=== PATIENT | female | born 1985 | race Hispanic/Latino ===

== ENCOUNTER 2024-04-03 19:09 | Emergency (ER) | payer SELFPAY ==
--- OUTSIDE RECORDS SUMMARY | 2024-04-03 19:12 | XMS REPORT | Continuity of Care Document ---
Author Name Unknown Address [address] [facility] [address] [place] [address] [facility] Address [address] [facility] [address] [place] [address] Care Team Providers Care Slip Maker Name Role Phone PCP, PATIENT DOES NOT HAVE A Primary Care Physic derrick Unavailable SHAUN SHIELDS Attending Clinician Unavailable Shaun Huang Attending Clinician Selam Rodriguez R Attending Clinician [phone] Silvia Hernandez Attending Clinician [phone] Pcp, Patient Does Not Have A Attending Clinician Jailyn Cabrera DO Attending Clinician [phone] JAILYN CABRERA Attending Clinician Unavailable Doctor Unassigned, Lopeno Attending Clinician U Francisco Malone Attending Clinician [phone] SHAUN SHIELDS Admitting Clinician Unavailable Problems Condition Name Condition Details Condition Category Status Onset Date Resolution Date Last Treatment Date Treating Clinician Comments Source Surgery, elective Surgery, elective Disease Active 12-07 00:00: 00 [facility] Other threatened labor, antepartum Other threatened labor, antepartum Disease Active 12-01 00:00: 00 [facility] Pelvic pain complicati ng , antepartum , third trimester Pelvic pain complicati ng , antepartum , third trimester Disease Active 11-19 00:00: 00 [facility] History of polyhydram nios History of polyhydram nios Disease Active 07-03 00:00: 00 Overview: Pt reports that with her second son, there was too much fluid [facility] History of polyhydram nios History of polyhydram nios Disease Active 07-03 00:00: 00 Overview: Formattin g of this note might be different from the original. Pt reports that with her second son, there was too much fluid [facility] Rubella non-immune status, antepartum Rubella non-immune status, antepartum Disease Active 05-28 00:00: 00 [facility] Abnormal maternal glucose tolerance, antepartum Abnormal maternal glucose tolerance, antepartum Disease Active 05-27 00:00: 00 Overview: Formattin g of this note might be different from the original. 1 hr lak=403 [facility] BV (bacterial vaginosis) BV (bacterial vaginosis) Disease Active 05-26 00:00: 00 [facility] Supervisio n of other high-risk Supervisio n of other high-risk Disease Active 05-26 00:00: 00 Overview: Formattin g of this note might be different from the original. ICD10 Diagnosis Term Applied Research Director Utility [facility] History of delivery, currently History of delivery, currently Disease Active 05-26 00:00: 00 Overview: Formattin g of this note might be different from the original. Prev x 2 [facility] Obesity complicati ng , childbirth , or puerperium , antepartum Obesity complicati ng , childbirth , or puerperium , antepartum Disease Active 05-26 00:00: 00 Overview: Formattin g of this note might be different from the original. ICD10 Diagnosis Term Applied Research Director Utility [facility] Uterine size-date discrepanc y, antepartum Uterine size-date discrepanc y, antepartum Disease Active 05-26 00:00: 00 Overview: Formattin g of this note might be different from the original. ICD10 Diagnosis Term Applied Research Director Utility [facility] Multiparit y Multiparit y Disease Active 05-26 00:00: 00 [facility] Nausea and vomiting in prior to 22 weeks gestation Nausea and vomiting in prior to 22 weeks gestation Disease Active 05-26 00:00: 00 [facility] Cyst, ovary, dermoid Cyst, ovary, dermoid Disease Active 2012-04 216 00:00: 00 [facility] Other and unspecifie d ovarian cyst Other and unspecifie d ovarian cyst Disease Active 2012-04 00:00: 00 Overview: Formattin g of this note might be different from the original. Bilateral pelvic masses, larger on the right -side. 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 8.8 x 6cm on the left side and 2.7 x 2cm on the right side. [facility] Allergies, Adverse Reactions, Alerts Allergy Name Allergy Type Status Severity Reaction(s) Onset Date Inactive Date Treating Clinician Comments Source NO KNOWN ALLERGIE S Drug Class Active [facility] Social History Social Habit Start Date Stop Date Quantity Comments Source History of tobacco use Cigarette Smoker [facility] Exposure to SARS-CoV-2 (event) 2021-12-02 00:00:00 2021-12-12 11:38:00 Not sure [facility] Alcohol intake 2021-12-12 00:00:00 2021-12-12 00:00:00 0 /d [facility] Tobacco use and exposure 2013-02-19 00:00:00 2013-02-19 00:00:00 Smokeless tobacco non-user [facility] Sex Assigned At 1985 00:00:00 1985 00:00:00 [facility] Smoking Status Start Date Stop Date Source Ex-smoker 2013-02-19 00:00:00 2013-02-19 00:00:[address] [facility] Medications Ordered Medication Name Filled Medication Name Start Date Stop Date Current Medication? Ordering Clinician Indication Dosage Frequency Signature (SIG) Comments Components Source ibuprofen (IBU) tablet 800 mg 12-12 17:00: 00 12-12 17:13 :00 No 800mg 800 mg, Oral, ONCE, 1 dose, On Sun12/12/21 at 1200, [facility] ketorolac (TORADOL) injection 15 mg 08-12 04:00: 00 08-12 02:53 :00 No 15mg 15 mg, Slow IV Push, ONCE, 1 dose, Sun08/11/20 at 2300, [facility]
Gladis [facility] member approving Restricted medication : SELAM GALEANO [facility] ondansetron (ZOFRAN (PF)) injection 4 mg 08-12 03:45: 00 08-12 02:48 :00 No 4mg 4 mg, Slow IV Push, ONCE, 1 dose, Sun08/11/20 at 2245, [facility] FENTanyl PF (SUBLIMAZE (PF)) injection 50 mcg 08-12 03:15: 00 08-12 02:10 :00 No 50ug 50 mcg, Slow IV Push, ONCE, 1 dose, Sun08/11/20 at 2215, Routine [facility] ondansetron (ZOFRAN (PF)) injection 4 mg 08-12 03:15: 00 08-12 02:10 :00 No 4mg 4 mg, Slow IV Push, ONCE, 1 dose, Sun08/11/20 at 2215, [facility] NaCl 0.9% (NS) bolus infusion 1,000 mL 08-12 02:15: 00 08-12 03:40 :00 No 1000mL at 999 mL/hr, 1,000 mL, IV Infusion, ONCE, 1 dose, Sun08/11/20 at 2115, [facility] ondansetron (ZOFRAN ODT) 4 mg disintegrat ing tablet 08-11 00:00: 00 Yes [id number] 4mg Take 1 tablet by mouth every 8 (eight) hours as needed for Nausea and Vomiting (N/V). [facility] ibuprofen (IBU) tablet 600 mg 12-28 01:00: 00 12-28 00:47 :00 No 600mg 600 mg, Oral, ONCE, 1 dose, Elliott 12/28/19 at 2000, [facility] ibuprofen 600 mg tablet 12-27 00:00: 00 Yes [id number] 600mg Take 1 tablet by mouth every 6 (six) hours as needed for Pain (scale 4-6). [facility] acetaminoph en (TYLENOL) tablet 1,000 mg 10-18 07:00: 00 10-18 05:52 :00 No 1000mg 1,000 mg, Oral, ONCE, 1 dose, 10/19/19 at 0200, [facility] benzonatate 100 mg capsule 10-18 00:00: 00 Yes [id number] 100mg Take 1 capsule by mouth 3 (three) times daily as needed for Cough. [facility] chlorphenir amine 4 mg tablet 10-18 00:00: 00 Yes [id number] 4mg Take 1 tablet by mouth every 6 (six) hours as needed for Allergies or Runny nose. [facility] multivitami n capsule 10-18 00:00: 00 Yes [id number] 1{capsu le} Take 1 capsule by mouth daily. [facility] calcium-mag nesium-zinc 333-133-8.3 mg Tab 10-18 00:00: 00 Yes [id number] Take as directed for daily dose. [facility] azithromyci n (ZITHROMAX Z-IRA) 250 mg tablet 10-18 00:00: 00 Yes [id number] 250mg Take 1 tablet by mouth SEE-INSTRU CTIONS. Take 500 mg day 1, then 250 mg days 2 to 5. [facility] multivitami n capsule 10-18 00:00: 00 Yes [id number] 1{capsu le} Take 1 capsule by mouth daily. [facility] ondansetron (ZOFRAN (PF)) injection 4 mg 12-28 20:00: 00 12-28 19:25 :00 No 4mg 4 mg, Slow IV Push, ONCE, 1 dose, 12/28/18 at 1500, [facility] NaCl 0.9% (NS) bolus infusion 1,000 mL 12-28 20:00: 00 12-28 20:28 :00 No 1000mL at 999 mL/hr, 1,000 mL, IV Infusion, ONCE, 1 dose, 12/28/18 at 1500, STAT [facility] hydrOXYzine (ATARAX) tablet 25 mg 12-28 19:45: 00 12-28 18:58 :00 No 25mg 25 mg, Oral, ONCE, 1 dose, 12/28/18 at 1445, [facility] hydrOXYzine 25 mg capsule 12-28 00:00: 00 01-08 04:59 :00 No [id number] 25mg Take 1 capsule by mouth 3 (three) times daily as needed for Itching or Anxiety for up to 10 days. [facility] fluticasone (FLONASE) 50 mcg/actuati on nasal spray 07-03 00:00: 00 Yes 1{spray } Use 1 Cedar in each nostril daily. [facility] Vital Signs Vital Name Observation Time Observation Value Comments S ource Systolic blood pressure 2021-12-12 16:38:00 156 mm[Hg] [facility] Diastolic blood pressure 2021-12-12 16:38:00 86 mm[Hg] [facility] Heart rate 2021-12-12 16:38:00 82 /min [facility] Body temperature 2021-12-12 16:38:00 37 Tasha [facility] Respiratory rate 2021-12-12 16:38:00 15 /min [facility] Body height 2021-12-12 16:38:00 157.5 cm [facility] Body weight 2021-12-12 16:38:00 104.327 kg [facility] BMI 2021-12-12 16:38:00 42.07 kg/m2 [facility] Oxygen saturation in Arterial blood by Pulse oximetry 2021-12-12 16:38:00 96 /min [facility] Systolic blood pressure 2020-08-12 03:07:00 134 mm[Hg] [facility] Diastolic blood pressure 2020-08-12 03:07:00 82 mm[Hg] [facility] Heart rate 2020-08-12 03:07:00 76 /min [facility] Respiratory rate 2020-08-12 03:07:00 16 /min [facility] Oxygen saturation in Arterial blood by Pulse oximetry 2020-08-12 03:07:00 100 /min [facility] Body temperature 2020-08-12 01:39:00 36.78 Tasha [facility] Body height 2020-08-12 01:39:00 157.5 cm [facility] Body weight 2020-08-12 01:39:00 99.791 kg [facility] BMI 2020-08-12 01:39:00 40.24 kg/m2 [facility] Systolic blood pressure 2019-12-28 23:32:00 137 mm[Hg] [facility] Diastolic blood pressure 2019-12-28 23:32:00 87 mm[Hg] [facility] Heart rate 2019-12-28 23:32:00 76 /min [facility] Body temperature 2019-12-28 23:32:00 36.39 Tasha [facility] Respiratory rate 2019-12-28 23:32:00 18 /min [facility] Body height 2019-12-28 23:32:00 157.5 cm [facility] Body weight 2019-12-28 23:32:00 90.719 kg [facility] BMI 2019-12-28 23:32:00 36.58 kg/m2 [facility] Oxygen saturation in Arterial blood by Pulse oximetry 2019-12-28 23:32:00 98 /min [facility] Systolic blood pressure 2019-12-28 23:32:00 137 mm[Hg] [facility] Diastolic blood pressure 2019-12-28 23:32:00 87 mm[Hg] [facility] Heart rate 2019-12-28 23:32:00 76 /min [facility] Body temperature 2019-12-28 23:32:00 36.39 Tasha [facility] Respiratory rate 2019-12-28 23:32:00 18 /min [facility] Body height 2019-12-28 23:32:00 157.5 cm [facility] Body weight 2019-12-28 23:32:00 90.719 kg [facility] BMI 2019-12-28 23:32:00 36.58 kg/m2 [facility] Oxygen saturation in Arterial blood by Pulse oximetry 2019-12-28 23:32:00 98 /min [facility] Systolic blood pressure 2019-10-19 07:00:00 143 mm[Hg] [facility] Diastolic blood pressure 2019-10-19 07:00:00 96 mm[Hg] [facility] Heart rate 2019-10-19 07:00:00 86 /min [facility] Body temperature 2019-10-19 07:00:00 37.67 Tasha [facility] Oxygen saturation in Arterial blood by Pulse oximetry 2019-10-19 07:00:00 99 /min [facility] Respiratory rate 2019-10-19 06:09:51 18 /min [facility] Body height 2019-10-19 03:36:00 157.5 cm [facility] Body weight 2019-10-19 03:36:00 95.255 kg [facility] BMI 2019-10-19 03:36:00 38.41 kg/m2 [facility] Systolic blood pressure 2019-10-19 07:00:00 143 mm[Hg] [facility] Diastolic blood pressure 2019-10-19 07:00:00 96 mm[Hg] [facility] Heart rate 2019-10-19 07:00:00 86 /min [facility] Body temperature 2019-10-19 07:00:00 37.67 Tasha [facility] Oxygen saturation in Arterial blood by Pulse oximetry 2019-10-19 07:00:00 99 /min [facility] Respiratory rate 2019-10-19 06:09:51 18 /min [facility] Body height 2019-10-19 03:36:00 157.5 cm [facility] Body weight 2019-10-19 03:36:00 95.255 kg [facility] BMI 2019-10-19 03:36:00 38.41 kg/m2 [facility] Systolic blood pressure 2018-12-28 20:00:00 119 mm[Hg] [facility] Diastolic blood pressure 2018-12-28 20:00:00 82 mm[Hg] [facility] Heart rate 2018-12-28 20:00:00 79 /min [facility] Respiratory rate 2018-12-28 20:00:00 24 /min [facility] Oxygen saturation in Arterial blood by Pulse oximetry 2018-12-28 20:00:00 98 /min [facility] Body weight 2018-12-28 18:45:00 90.719 kg [facility] BMI 2018-12-28 18:45:00 37.81 kg/m2 [facility] Body temperature 2018-12-28 18:44:00 37.06 Tasha [facility] Systolic blood pressure 2018-12-28 20:00:00 119 mm[Hg] [facility] Diastolic blood pressure 2018-12-28 20:00:00 82 mm[Hg] [facility] Heart rate 2018-12-28 20:00:00 79 /min [facility] Respiratory rate 2018-12-28 20:00:00 24 /min [facility] Oxygen saturation in Arterial blood by Pulse oximetry 2018-12-28 20:00:00 98 /min [facility] Body weight 2018-12-28 18:45:00 90.719 kg [facility] BMI 2018-12-28 18:45:00 37.81 kg/m2 [facility] Body temperature 2018-12-28 18:44:00 37.06 Tasha [facility] Procedures Procedure Date / Time Performed Performing Clinician Source XR ANKLE 3+ VW RIGHT 2021-12-12 17:13:07 Benjamin Shieldse [facility] CONSENT/REFUSAL FOR DIAGNOSIS AND TREATMENT 2021-12-12 16:32:39 Doctor Unassigned, Lopeno [facility] US ABDOMEN LIMITED 2020-08-12 02:36:22 Selam Galeano [facility] POCT TEST 2020-08-12 02:12:00 Selam Galeano [facility] LIPASE 2020-08-12 02:08:00 [facility] COMP. METABOLIC PANEL ([id number]) 2020-08-12 02:08:00 Selam Galeano [facility] CBC WITH DIFF 2020-08-12 02:08:00 Selam Galeano [facility] URINALYSIS 2020-08-12 02:08:00 Sel[facility]ale[facility] CONSENT/REFUSAL FOR DIAGNOSIS AND TREATMENT 2020-08-12 01:34:04 Doctor Unassigned, Lopeno [facility] XR FOREARM 2 VW LEFT 2019-12-29 00:21:37 Silvia Guzman [facility] XR HUMERUS 2 VW LEFT 2019-12-29 00:21:37 Silvia Guzman [facility] NOTICE OF PRIVACY PRACTICES 2019-12-28 23:25:53 Doctor Unassigned, Lopeno [facility] CONSENT/REFUSAL FOR DIAGNOSIS AND TREATMENT 2019-12-28 23:23:02 Doctor Unassigned, Lopeno [facility] URINALYSIS 2019-10-19 06:08:00 Jailyn Cabrera [facility] COVID-19 (ID NOW RAPID TESTING) 2019-10-19 05:53:00 Jailyn Cabrera [facility] XR CHEST 1 VW COVID 2019-10-19 04:04:00 Jr Cabrera [facility] COMP. METABOLIC PANEL ([id number]) 2019-10-19 03:48:00 Jailyn Cabrera [facility] CBC WITH DIFFERENTIAL 2019-10-19 03:48:00 Anders Cabrera [facility] CONSENT/REFUSAL FOR DIAGNOSIS AND TREATMENT 2019-10-19 03:24:04 Doctor Unassigned, Lopeno [facility] ASSIGNMENT OF BENEFITS 2019-10-19 03:23:51 Docto r Unassigned, Lopeno [facility] COMP. METABOLIC PANEL (19757) 2018-12-28 19:22:00 Francisco Lorenz [facility] CBC WITH DIFFERENTIAL 2018-12-28 19:22:00 Kaleb Lorenz [facility] Encounters Start Date/Time End Date/Time Encounter Type Admission Type Attending [facility] Care Facility Care Department Encounter ID Source 2021-12-12 11:39:00 2021-12-12 13:08:00 Emergency X SHAUN SHIELDS [facility] ERT [id number] [facility] 2021-12-12 11:39:00 2021-12-12 13:08:00 Emergency Shaun Shields [facility] [id number] 350.1.13.10 [id number] [id number] [facility] 2020-08-11 20:35:00 2020-08-11 22:52:00 Emergency Selam Galeano [facility] [id number] 350.1.13.10 4.2.7.2.686 [id number] [facility] 2020-08-11 20:34:00 2020-08-11 20:34:00 Emergency X [facility] ERT [id number] [facility] 2019-12-28 18:33:00 2019-12-28 20:15:00 Emergency Silvia Guzman [facility] [id number] [id number] 4.2.7.2.686 [id number] [facility] 2019-12-28 18:33:00 2019-12-28 20:15:00 Emergency Silvia Guzman [facility] [id number] 350.1.13.10 4.2.7.2.686 [id number] 2019-12-28 18:23:00 2019-12-28 18:23:00 Emergency X [facility] ERT [id number] [facility] 2019-10-22 00:00:00 2019-10-22 00:00:00 Letter (Out) Pcp, Patient Does Not Have A [facility] [id number] 350.1.13.10 4.2.7.2.686 [id number] [facility] 2019-10-22 00:00:00 2019-10-22 00:00:00 Letter (Out) Pcp, Patient Does Not Have A [facility] [id number] 350.1.13.10 4.2.7.2.686 [id number] 2019-10-18 22:29:58 2019-10-19 02:20:00 Emergency Jailyn Cabrera [facility] [id number] 350.1.13.10 4.2.7.2.686 [id number] [facility] 2019-10-18 22:29:58 2019-10-19 02:20:00 Emergency Jailyn Cabrera [facility] [id number] 350.1.13.10 4.2.7.2.686 [id number] 2019-10-18 22:24:00 2019-10-18 22:24:00 Emergency X JAILYN CABRERA [facility] ERT [id number] [facility] 2019-10-18 00:00:00 2019-10-18 00:00:00 Orders Only Doctor Unassigned, Lopeno [facility] [id number] 350.1.13.10 4.2.7.2.686 [id number] [facility] 2019-10-18 00:00:00 2019-10-18 00:00:00 Orders Only Doctor Unassigned, Lopeno [facility] 1.2.840.114 350.1.13.10 4.2.7.2.686 [id number] 2018-12-28 13:40:43 2018-12-28 15:29:00 Emergency Francsico Lorenz [facility] 1.2.840.114 350.1.13.10 4.2.7.2.686 [id number] [facility] 2018-12-28 13:40:43 2018-12-28 15:29:00 Emergency Francisco Lorenz [facility] [id number] 350.1.13.10 4.2.7.2.686 [id number] Results Test Description Test Time Test Comments Results Result Co mments Source [facility]30:18* Test Item Value Reference Range Interpretation Comme nts LIPASE (test code = 6453118072) 42 U/L 0-220 Lab Interpretation (test cod e = 36825-9) Normal [facility] 02:28:30* Test Item Value Reference Range Interpretation Comme nts APPEARANCE (test code = 5722177489) Hazy Clear A COLOR (test code = 8925691104) Yellow Yellow PH (test code = 8297380579) 4.8-8.0 SP GRAVITY (test code = 1884796098) 1.003-1.030 GLU U QUAL (test code = 0331168067) Normal Normal BLOOD (test code = 6591709771) 3+ Negative A KETONES (test code = 9647905367) Negative Negative PROTEIN (test code = 2887-8) Negative Negative UROBILIN (test code = 4280536572) Normal Normal BILIRUBIN (test code = 5136075688) Negative Negative NITRITE (test code = 7147262995) Negative Negative LEUK ARCENIO (test code = 6893740618) Negative Negative RBC/HPF (test code = 3534632980) See_Comment H [Automated messa ge] The system which generated this result transmitted reference range: 0 - 3 HPF. The reference range was not used to interpret this result as normal/abnormal. WBC/HPF (test code = 2010389772) See_Comment H [Automated messa ge] The system which generated this result transmitted reference range: 0 - 5 HPF. The reference range was not used to interpret this result as normal/abnormal. BACTERIA (test code = 4959784158) Moderate Negative A MUCOUS (test code = 7671331350) Slight Negative LPF A AMORPHOUS (test code = 1041222733) Rare Rare HPF SQ EPITH (test code = 5135266221) HPF Lab Interpretation (test code = 19393-6) Abnormal [facility] WITH [id number] 02:18:38* Test Item Value Reference Range Interpretation Comme nts WBC (test code = 6690-2) See_Comment [Automated messa ge] The system which generated this result transmitted reference range: 4.30 - 11.10 10*3/?L. The reference range was not used to interpret this result as normal/abnormal. RBC (test code = 789-8) See_Comment [Automated messa ge] The system which generated this result transmitted reference range: 3.93 - 5.25 10*6/?L. The reference range was not used to interpret this result as normal/abnormal. HGB (test code = 718-7) 12.4 g/dL 11.6-15.0 HCT (test code = 4544-3) 38.3 % 35.7-45.2 MCV (test code = 787-2) 86.5 fL 80.6-95.5 MCH (test code = 785-6) 28.0 pg 25.9-32.8 MCHC (test code = 786-4) 32.4 g/dL 31.6-35.1 RDW-SD (test code = 74223-5) 42.5 fL 39.0-49.9 RDW-CV (test code = 788-0) 13.5 % 12.0-15.5 PLT (test code = 777-3) See_Comment [Automated messa ge] The system which generated this result transmitted reference range: 166 - 358 10*3/?L. The reference range was not used to interpret this result as normal/abnormal. MPV (test code = 92865-5) 9.0 fL 9.5-12.9 L NRBC/100 WBC (test code = 5444879939) See_Comment [Automated [employer] ssage] The system which generated this result transmitted reference range: 0.0 - 10.0 /100 WBCs. The reference range was not used to interpret this result as normal/abnormal. NRBC x10^3 (test code = 1889660651) <0.01 See_Comment [Automated messa ge] The system which generated this result transmitted reference range: 10*3/?L. The reference range was not used to interpret this result as normal/abnormal. GRAN MAT (NEUT) % (test code = 770-8) 62.2 % IMM GRAN % (test code = 3464779180) 0.40 % LYMPH % (test code = 736-9) 30.2 % MONO % (test code = 5905-5) 4.2 % EOS % (test code = 713-8) 2.6 % BASO % (test code = 706-2) 0.4 % GRAN MAT x10^3(ANC) (test code = 2610020890) 6.37 10*3/uL 1.88-7.09 IMM GRAN x10^3 (test code = 7919505587) 0.04 10*3/uL 0.00-0.06 LYMPH x10^3 (test code = 731-0) 3.10 10*3/uL 1.32-3.29 MONO x10^3 (test code = 742-7) 0.43 10*3/uL 0.33-0.92 EOS x10^3 (test code = 711-2) 0.27 10*3/uL 0.03-0.39 BASO x10^3 (test code = 704-7) 0.04 10*3/uL 0.01-0.07 Lab Interpretation (test code = 67885-5) [facility] [id number] 02:12:00* Test Item Value Reference Range Interpretation Comme nts POCT PREG (test code = 1605) negative On board controls acceptable with C Line (test code = 3574) present POCT PREG LOT # (test code = 3575) [id number] POCT PREG TEST DATE ( test code = 3576) 03/22/2022 Lab Interpretation (test cod e = 47169-3) Normal [facility] 2 VW [id number] 00:58:00No acute bony abnormality. Soft tissue swelling. Preliminary Report Dictated by Resident: Toribio Yusuf MD., have reviewed this study and agree with the abovereport.EXAM: XR FOREARM 2 VW LEFT, EXAM: XR HUMERUS 2 VW LEFT HISTORY: right arm pain from fall COMPARISON: None. FINDINGS: Radiographs of the left humerus and forearm demonstrate no acute fracturesor dislocations. Mild soft tissue swelling is seen at the dorsal aspect ofthe distal arm and proximal forearm. A subcentimeter punctate density atthe dorsal aspect of the proximal ulna, possibly dystrophic soft tissuecalcifications versus foreign body. A corticated osseous fragment is seenat the medial aspect of the ulnotr ochlear joint, likely a remote fracturefragment. [facility], Radiant Results Inft User - 12/28/2019 7:59 PM CDTEXAM: XR FOREARM 2 VW LEFT, EXAM: XR HUMERUS 2 VW LEFTHISTORY: right arm pain from fall COMPARISON: None.FINDINGS: Radiographs of the left humerus and forearm demonstrate no acute fracturesor dislocations. Mild soft tissue swelling is seen at the dorsal aspect ofthe distal arm and proximal forearm. A subcentimeter punctate density atthe dorsal aspect of the proximal ulna, possibly dystrophicsoft tissuecalcifications versus foreign body. A corticated osseous fragment is seenat the medial aspect of the ulnotrochlear joint, likely a remote fracturefragment. IMPRESSIONNo acute bony abnormali ty.Soft tissue swelling.Preliminary Report Dictated by Resident: Toribio Saxena MD., have reviewed this study and agree with the abovereport.[facility] 2 VW [id number] 00:58:00No acute bony abnormality. Soft tissue swelling. Preliminary Report Dictated by Resident: Toribio Yusuf MD., have reviewed this study and agree with the abovereport.EXAM: XR FOREARM 2 VW LEFT, EXAM: XR HUMERUS 2 VW LEFT HISTORY: right arm pain from fall COMPARISON: None. FINDINGS: Radiographs of the left humerus and forearm demonstrate no acute fracturesor dislocations. Mild soft tissue swelling is seen at the dorsal aspect ofthe distal arm and proximal forearm. A subcentimeter punctate density atthe dorsal aspect of the proximal ulna, possibly dystrophic soft tissuecalcifications versus foreign body. A corticated osseous fragment is seenat the medial aspect of the ulnotrochlear joint, likely a remote fracturefragment. [facility], Radiant Results Inft User - 12/28/2019 7:59 PM CDTEXAM: XR FOREARM 2 VW LEFT, EXAM: XR HUMERUS 2 VW LEFTHISTORY: right arm pain from fall COMPARISON: None.FINDINGS: Radiographs of the left humerus and forearm demonstrate no acute fracturesor dis locations. Mild soft tissue swelling is seen at the dorsal aspect ofthe distal arm and proximal forearm. A subcentimeter punctate density atthe dorsal aspect of the proximal ulna, possibly dystrophicsoft tissuecalcifications versus foreign body. A corticated osseous fragment is seenat the medial aspect of the ulnotrochlear joint, likely a remote fracturefragment. IMPRESSIONNo acute bony abnormality.Soft tissue swelling.Preliminary Report Dictated by Resident: Toribio Saxena MD., have reviewed this study and agree with the abovereport.[facility]INALYSIS2020-06-28 07:00:00 * Test Item Value Reference Range Interpretation Comme nts APPEARANCE (test code = 3555431840) Cloudy Clear A COLOR (test code = 8550355735) Yellow Yellow PH (test code = 8726069289) 4.8-8.0 SP GRAVITY (test code = 3840669841) 1.003-1.030 GLU U QUAL (test code = 9797367326) Normal Normal BLOOD (test code = 8609738371) 1+ Negative A KETONES (test code = 3249343368) Negative Negative PROTEIN (test code = 2887-8) Negative Negative UROBILIN (test code = 1138545762) Normal Normal BILIRUBIN (test code = 0061470354) Negative Negative NITRITE (test code = 5269629148) Negative Negative LEUK ARCENIO (test code = 5315177362) Negative Negative RBC/HPF (test code = 2377030766) See_Comment H [Automated messa ge] The system which generated this result transmitted reference range: 0 - 3 HPF. The reference range was not used to interpret this result as normal/abnormal. WBC/HPF (test code = 1396291460) See_Comment [Automated messa ge] The system which generated this result transmitted reference range: 0 - 5 HPF. The reference range was not used to interpret this result as normal/abnormal. BACTERIA (test code = 4298835459) Many Negative A MUCOUS (test code = 4196145322) Moderate Negative LPF A SQ EPITH (test code = 5381626654) HPF Lab Interpretation (test code = 75367-8) [facility]normal [facility]OVID[facility] (ID NOW RAPID TESTING)2019-10-19 06:31:00* Test Item Value Reference Range Interpretation Comme nts SARS-CoV-2 Rapid ID NOW (test code = 31376-6) Positive Not Detected A ZIA (test code = ZIA) ID NOW COVID-19 As say is an isothermal nucleic acid amplification test intended for the qualitative detection of nucleic acid from SARS-CoV-2 viral RNA in nasopharyngeal (ENGAGEMENT SPECIALIST) specimens. It is used under Emergency Use Authorization (EUA) by FDA. The limit of detection (LOD) of the assay is 125 Genome Equivalents/mL. A positive result is indicative of the presence of SARS-CoV-2 RNA. ?Clinical correlation with patient history and other diagnostic information is necessary to determine patient infection status. A negative (Not Detected) result does not preclude SARS-CoV-2 infection. In patients with clinical symptoms and other tests that are consistent with SARS-CoV-2 infection, negative results should be treated as presumptive negative and a new specimen should be tested with alternative PCR molecular test. Invalid: Please collect a new specimen for repeat patient testing if clinically indicated. Lab Interpretation (test code = 24035-7) [facility]normal [facility] 1 VW [id number] 04:48:23Possible consolidation in the right midlung. Radiographic findingssuspicious for infection, including COVID-19 pneumonia. Disclaimer: Generally, the findings on chest imaging in COVID-19 are notspecific, and overlap with other infections, including influenza, H1N1,SARS and MERS.According to the Centers for Disease Control (CDC) and recent statement ofthe [employer], viral testing remains the only specificmethod of diagnosis. Confirmation with the viral test is required, even ifradiologic findings are suggestive of COVID-[address]. Preliminary Report Dictated by Resident: Onur Woodard MD., have reviewed this study and agree with the abovereport.PROCEDURE: CHEST, SINGLE VIEW , CLINICAL INDICATION: 34 years Female presenting with shortness of breath COMPARISON: Chest radiographs None FINDINGS: Lungs: Amorphous radiopacity overlies the right hilum. This could representconsolidation or calcifications within hilar lymph nodes. No focalconsolidation, pleural effusion, or pneumothorax. Mediastinum: The cardiomediastinal silhouette is normal in size. Osseous structures: No acute bony abnormality. [facility], Radiant Results Inft User - 10/18/2019 11:49 PM CDTPROCEDURE: CHEST, SINGLE VIEW , CLINICAL INDICATION: 34 years Female presenting with shortness of breath COMPARISON: Chest radiographs NoneFINDINGS:Lungs: Amorphous radiopacity overlies the right hilum. This could representconsolidation or calcifications within hilar lymph nodes. No focalcon solidation, pleural effusion, or pneumothorax.Mediastinum: The cardiomediastinal silhouette is normal in size.Osseous structures: No acute bony abnormality.IMPRESSIONPossible consolidation in the right midlung. Radiographic findingssuspicious for infection, including COVID-19 pneumonia.Disclaimer: G enerally, the findings on chest imaging in COVID-19 are notspecific, and overlap with other infections, including influenza, H1N1,SARS and MERS.According to the Centers for Disease Control (CDC) and recent statement ofthe [employer], viral testing remains the only specificmethod of diagnosis. Confirmation with the viral test is required, even ifradiologic findings are suggestive of COVID-[address]. Preliminary Report Dictated by Resident: Randal Guerrero, Onur Adamson MD., have reviewed this study and agree with the abovereport.[facility]. METABOLIC PANEL ([id number]) 2019-10-19 04:44:00* Test Item Value Reference Range Interpretation Comme nts NA (test code = 0158309818) 136 mmol/L 135-145 K (test code = 4466236361) 4.1 mmol/L 3.5-5 CL (test code = 4557568131) 103 mmol/L 98-108 CO2 TOTAL (test code = 7087857420) 27 mmol/L 23-31 AGAP (test code = 0446146673) 2-16 BUN (test code = 2744872542) 12 mg/dL 7-23 GLUCOSE (test code = 2375571532) 121 mg/dL 70-110 H CREATININE (test code = 5302831760) 1.04 mg/dL 0.5-1.04 TOTAL BILI (test code = 9185934937) 0.2 mg/dL 0.1-1.1 CALCIUM (test code = 4952346939) 8.6 mg/dL 8.6-10.6 T PROTEIN (test code = 0184975083) 8.1 g/dL 6.3-8.2 ALBUMIN (test code = 9934057140) 4.3 g/dL 3.5-5 ALK PHOS (test code = 6291533149) 64 U/L 34-122 ALTv (test code = 1742-6) 45 U/L 5-35 H AST(SGOT) (test code = 7656715704) 31 U/L 13-40 eGFR Calculation (Non-) (test code = 1427414698) mL/min/1.73m2 eGFR Calculation () (test code = 3437654731) mL/min/1.73m2 ZIA (test code = ZIA) Association of Glomerular Filtration Rate (GFR) and Staging of Kidney Disease* + --+ --+ ------+| GFR (mL/min/1.73 m2) ?| With Kidney Damage ?| ?Without Kidney Damage+ --------+ --------+ +| ?>90 ?| ?Stage one ?| ? Normal ?+ ---+ ---+ -------+| ?60-89 ?| ?Stage two ?| ? Decreased GFR ? + --+ --+ ------+| ?30-59 ?| ?Stage three ?| ? Stage three ? + --+ --+ ------+| ?15-29 ?| ?Stage four ? | ? Stage four ?+ ---+ ---+ -------+| ?<15 (or dialysis) ? ?| ?Stage five ? | ? Stage five ?+ ---+ ---+ -------+ *Each stage assumes the associated GFR level has been in effect for at least three months. ?Stages 1 to 5, with or without kidney disease, indicate chronic kidney disease. Notes: Determination of stages one and two (with eGFR >59mL/min/1.73 m2) requires estimation of kidney damage for at least three months as defined by structural or functional abnormalities of the kidney, manifested by either:Pathological abnormalities or Markers of kidney damage (including abnormalities in the composition of the blood or urine or abnormalities in imaging tests). Lab Interpretation (test code = 84579-3) Abnormal [facility] WITH [id number] 04:29:00* Test Item Value Reference Range Interpretation Comme nts WBC (test code = 6690-2) See_Comment [Automated messa ge] The system which generated this result transmitted reference range: 4.30 - 11.10 10*3/?L. The reference range was not used to interpret this result as normal/abnormal. RBC (test code = 789-8) See_Comment [Automated messa ge] The system which generated this result transmitted reference range: 3.93 - 5.25 10*6/?L. The reference range was not used to interpret this result as normal/abnormal. HGB (test code = 718-7) 12.6 g/dL 11.6-15 HCT (test code = 4544-3) 38.2 % 35.7-45.2 MCV (test code = 787-2) 86.6 fL 80.6-95.5 MCH (test code = 785-6) 28.6 pg 25.9-32.8 MCHC (test code = 786-4) 33.0 g/dL 31.6-35.1 RDW-SD (test code = 61055-3) 41.1 fL 39-49.9 RDW-CV (test code = 788-0) 13.1 % 12-15.5 PLT (test code = 777-3) See_Comment [Automated [employer]] The system which generated this result transmitted reference range: 166 - 358 10*3/?L. The reference range was not used to interpret this result as normal/abnormal. MPV (test code = 40051-0) 9.0 fL 9.5-12.9 L NRBC/100 WBC (test code = 3292721569) See_Comment [Automated [employer] ssage] The system which generated this result transmitted reference range: 0.0 - 10.0 /100 WBCs. The reference range was not used to interpret this result as normal/abnormal. NRBC x10^3 (test code = 9080785701) <0.01 See_Comment [Automated [employer]] The system which generated this result transmitted reference range: 10*3/?L. The reference range was not used to interpret this result as normal/abnormal. GRAN MAT (NEUT) % (test code = 770-8) 49.9 % IMM GRAN % (test code = 3373840612) 0.40 % LYMPH % (test code = 736-9) 40.4 % MONO % (test code = 5905-5) 6.9 % EOS % (test code = 713-8) 2.0 % BASO % (test code = 706-2) 0.4 % GRAN MAT x10^3(ANC) (test code = 1728711673) 2.47 10*3/uL 1.88-7.09 IMM GRAN x10^3 (test code = 3941846759) <0.03 0-0.06 LYMPH x10^3 (test code = 731-0) 2.00 10*3/uL 1.32-3.29 MONO x10^3 (test code = 742-7) 0.34 10*3/uL 0.33-0.92 EOS x10^3 (test code = 711-2) 0.10 10*3/uL 0.03-0.39 BASO x10^3 (test code = 704-7) <0.03 0.01-0.07 Lab Interpretation (test code = 92222-1) [facility] METABOLIC PANEL (39375)2018-12-28 20:04:00* Test Item Value Reference Range Interpretation Comme nts NA (test code = 3810773358) 144 mmol/L 135-145 K (test code = 6939154148) 4.2 mmol/L 3.5-5 CL (test code = 7484084145) 110 mmol/L 98-108 H CO2 TOTAL (test code = 4520362628) 21 mmol/L 23-31 L AGAP (test code = 1265979127) 2-16 BUN (test code = 0239044654) 18 mg/dL 7-23 GLUCOSE (test code = 2323666683) 96 mg/dL 70-110 CREATININE (test code = 4395227195) 0.58 mg/dL 0.5-1.04 TOTAL BILI (test code = 2756345403) 0.3 mg/dL 0.1-1.1 CALCIUM (test code = 9338142539) 9.3 mg/dL 8.6-10.6 T PROTEIN (test code = 6986833173) 7.9 g/dL 6.3-8.2 ALBUMIN (test code = 8200731023) 4.4 g/dL 3.5-5 ALK PHOS (test code = 9218452517) 80 U/L 34-122 ALT(SGPT) (test code = 2515004702) 24 U/L 9-51 AST(SGOT) (test code = 6870758147) 21 U/L 13-40 eGFR Calculation (Non-) (test code = 0916062839) mL/min/1.73m2 eGFR Calculation () (test code = 0715599009) mL/min/1.73m2 ZIA (test code = ZIA) Association of Glomerular Filtration Rate (GFR) and Staging of Kidney Disease*+ + + +| GFR (mL/min/1.73 m2)?| With Kidney Damage?|?Without Kidney Damage+ --------+ --------+ +|?>90?|?S tage one?|? Normal?+ ---------+ ---------+ +|?60-89? |?Stage two?|? Decreased GFR? + --+ --+ ------+|?30-59??|?Stag e three?|? Stage three? + --+ --+ ------+|?15-29?|?Stage four? |? Stage four?+ -------+ -------+ +|?<15 (or dialysis)?|?Stage five? |? Stage five?+ -------+ -------+ +*Each stage assumes the associated GFR level has been in effect for at least three months.?Stages 1 to 5, with or without kidney disease, indicate chronic kidney disease.Notes: Determination of stages one and two (with eGFR >59mL/min/1.73 m2) requires estimation of kidney damage for at least three months as defined by structural or functional abnormalities of the kidney, manifested by either:Pathological abnormalities or Markers of kidney damage (including abnormalities in the composition of the blood or urine or abnormalities in imaging tests). Lab Interpretation (test code = 91884-7) Abnormal [facility] WITH [id number] 19:51:00* Test Item Value Reference Range Interpretation Comme nts WBC (test code = 6690-2) See_Comment [Automated [employer]] The system which generated this result transmitted reference range: 4.30 - 11.10 10*3/?L. The reference range was not used to interpret this result as normal/abnormal. RBC (test code = 789-8) See_Comment [Automated [employer]] The system which generated this result transmitted reference range: 3.93 - 5.25 10*6/?L. The reference range was not used to interpret this result as normal/abnormal. HGB (test code = 718-7) 13.0 g/dL 11.6-15 HCT (test code = 4544-3) 39.7 % 35.7-45.2 MCV (test code = 787-2) 85.9 fL 80.6-95.5 MCH (test code = 785-6) 28.1 pg 25.9-32.8 MCHC (test code = 786-4) 32.7 g/dL 31.6-35.1 RDW-SD (test code = 83893-3) 39.0 fL 39-49.9 RDW-CV (test code = 788-0) 12.6 % 12-15.5 PLT (test code = 777-3) See_Comment [Automated messa ge] The system which generated this result transmitted reference range: 166 - 358 10*3/?L. The reference range was not used to interpret this result as normal/abnormal. MPV (test code = 84973-1) 9.3 fL 9.5-12.9 L NRBC/100 WBC (test code = 6768508157) See_Comment [Automated [employer] ssage] The system which generated this result transmitted reference range: 0.0 - 10.0 /100 WBCs. The reference range was not used to interpret this result as normal/abnormal. NRBC x10^3 (test code = 0075718992) <0.01 See_Comment [Automated messa ge] The system which generated this result transmitted reference range: 10*3/?L. The reference range was not used to interpret this result as normal/abnormal. GRAN MAT (NEUT) % (test code = 770-8) 65.6 % IMM GRAN % (test code = 7327244336) 0.40 % LYMPH % (test code = 736-9) 27.2 % MONO % (test code = 5905-5) 4.8 % EOS % (test code = 713-8) 1.5 % BASO % (test code = 706-2) 0.5 % GRAN MAT x10^3(ANC) (test code = 3519627614) 6.31 10*3/uL 1.88-7.09 IMM GRAN x10^3 (test code = 9128409728) 0.04 10*3/uL 0-0.06 LYMPH x10^3 (test code = 731-0) 2.61 10*3/uL 1.32-3.29 MONO x10^3 (test code = 742-7) 0.46 10*3/uL 0.33-0.92 EOS x10^3 (test code = 711-2) 0.14 10*3/uL 0.03-0.39 BASO x10^3 (test code = 704-7) 0.05 10*3/uL 0.01-0.07 Lab Interpretation (test code = 30149-4) Abnormal [facility]"
[2024-04-03] MEDS ORDERED: KETOROLAC 30 MG/ML INJ ONE (19:46)
[2024-04-03] MEDS ORDERED: ONDANSETRON 4 MG/2 ML VIAL ONE (19:46)
[2024-04-03] MEDS ORDERED: NA CHLORIDE 0.9% 1,000 ML ONE (19:47)
[2024-04-03] MEDS ORDERED: FAMOTIDINE 20 MG/2 ML VIAL IV ONE (19:47)
[2024-04-03 20:02] LABS: Specific Gravity 1.022 (1.005-1.030)
[2024-04-03 20:04] LABS: Specific Gravity 1.022 (1.005-1.030); Sqamous Epithelial <5 /HPF (None Seen); Transitional Epithelial <5 /HPF (None Seen); Urine Bacteria <20 /HPF (<20); Urine Bilirubin NEGATIVE (Negative); Urine Blood Trace (Negative); Urine Clarity Turbid (Clear); Urine Color Light-Yellow (Yellow); Urine Culture Reflex Order NOT NEEDED; Urine Glucose TRACE (Negative); Urine Ketones NEGATIVE (Negative); Urine Microscopic Reflex YN ORDER UMIC; Urine Mucus Slight /HPF (None Seen); Urine Nitrite NEGATIVE (Negative); Urine Protein NEGATIVE (Negative); Urine RBC <5 /HPF (None Seen); Urine Urobilinogen Normal (Normal); Urine WBC <5 /HPF (<5); Urine pH 5.5 (5.0-7.0)
[2024-04-03 20:07] LABS: Absolute Basophils 0.1 K/uL (0-0.5); Absolute Eosinophils 0.2 K/uL (0-0.5); Absolute Lymphocytes (CBC) 3.3 K/uL (0.7-4.9); Absolute Monocytes 0.5 K/uL (0.1-1.3); Absolute Neutrophil 6.8 K/uL (1.8-8.0); Basophils % 0.5 % (0-1.3); Eosinophils % 2.1 % (0-4.4); Hematocrit 38.6 % (36.0-45.0); Hemoglobin 13.2 g/dL (12.0-15.0); Lymphocytes % 30.2 % (15.3-44.8); MCH 28.9 pg (27.0-35.0); MCHC 34.1 g/dL (32.0-36.0); MCV 84.8 fL (80-100); MPV 6.8 fL (7.6-11.3); Monocytes % 4.6 % (3.3-12.3); Neutrophils % 62.6 % (41.7-73.7); Nucleated Red Blood Cells % 0.1 % (0-0); Platelets 362 thou/uL (152-406); RBC Red Blood Cell Count 4.55 M/uL (3.86-4.86); Red Cell Distribution Width 13.8 % (12.1-15.2)
[2024-04-03 20:12] LABS: Albumin 3.5 g/dL (3.4-5.0); Albumin/Globulin Ratio 0.8 (1.1-1.8); Anion Gap 7.7 mEq/L (5.0-15.0); Bilirubin Total 0.3 mg/dL (0.2-1.0); Globulin 4.6 g/dL (2.3-3.5); Potassium 3.7 mEq/L (3.5-5.1); Protein, Total 8.1 g/dL (6.4-8.2)
--- NOTE | 2024-04-03 20:40 | RAD REPORT ---
EXAMINATION: CT ABDOMEN AND PELVIS WITH CONTRAST CLINICAL INDICATION: epigastric and right flank pain TECHNIQUE: CT abdomen and pelvis was performed, after the administration of IV contrast, as per [facility]. Axial, sagittal and coronal reconstructions were obtained. One or more of the following dose reduction techniques were used: Automated exposure control, adjustment of the mA and k V according to patient size, and iterative reconstruction. Unless otherwise specified, incidental findings do not require dedicated imaging follow-up. COMPARISON: No prior exam. FINDINGS: LOWER CHEST: The visualized lung bases are clear. LIVER: Normal in size and contour. No focal lesion. Grossly unremarkable gallbladder. SPLEEN: Normal size. No focal lesion. PANCREAS: No mass, ductal dilation, or joe-pancreatic fluid. ADRENALS: Normal; no mass. KIDNEYS: Punctate calculus right kidney. No hydronephrosis. GASTROINTESTINAL TRACT: No evidence of free air, significant intra-abdominal free fluid, bowel obstru ction or abscess. APPENDIX: Normal appendix. LYMPH NODES: No lymphadenopathy. MUSCULOSKELETAL: No acute or suspicious osseous abnormality. ADDITIONAL FINDINGS: Small fat-containing umbilical hernia. IMPRESSION: No acute or concerning abnormalities seen in the abdomen or pelvis.
--- NOTE | 2024-04-03 21:38 | RAD REPORT ---
EXAM: Right upper quadrant ultrasound. CLINICAL HISTORY: epigastric/right flank pain COMPARISON: None. FINDINGS: Gallbladder: Appears filled with gallstones. Bile ducts: No intrahepatic or extrahepatic biliary dilatation. Common bile duct measures 5 mm. Limited imaging of the liver shows no concerning finding. IMPRESSION: Extensive cholelithiasis.
--- NOTE | 2024-04-03 22:08 | RAD REPORT ---
EXAMINATION: ONE VIEW CHEST XR CLINICAL INDICATION: epigastric pain/right flank pain TECHNIQUE: Frontal chest projection is submitted. Examination is limited by patient positioning and t echnique. COMPARISON: No prior exam. FINDINGS: The lungs are well inflated and clear. The heart is normal in size. Prominent right hilar density not ed which may represent a calcified lymph node or less likely mass. IMPRESSION: No acute intrathoracic abnormalities. Calcified right hilar density presumably calcified lymph node.
--- NOTE | 2024-04-03 22:18 | ER ---
Nurse's Notes [facility] Name: Tracy Brewer Age: 39 yrs Sex: Female : 1985 Arrival Date: 04/03/2024 Time: 19:09 Bed 4 Private MD: Diagnosis: Other cholelithiasis without obstruction;Nausea with vomiting, unspecified Presentation: 04/03 19:31 Chief complaint: Patient states: I have been having RUQ pain and nausea. I went to 6 urgent care and they think it's my gallbladder. Coronavirus screen: Client denies travel out of the [place] in the last 14 days. Ebola Screen: Patient negative for fever greater than or equal to 101.5 degrees Fahrenheit, and additional compatible Ebola Virus Disease symptoms Patient denies exposure to infectious person. Patient denies travel to an Ebola-affected area in the 21 days before illness onset. No symptoms or risks identified at this time. Initial Sepsis Screen: Does the patient meet any 2 criteria? No. Patient's initial sepsis screen is negative. Does the patient have a suspected source of infection? No. Patient's initial sepsis screen is negative. Risk Assessment: Do you want to hurt yourself or someone else? Patient reports no desire to harm self or others. Onset of symptoms was April 03, 2024. 19:31 Method Of Arrival: Ambulatory 6 19:31 Acuity: KARLA 3 tm6 Triage Assessment: 19:32 General: Appears in no apparent distress. Behavior is calm, cooperative. Pain: tm6 Complains of pain in right upper quadrant Pain currently is 10 out of 10 on a pain scale. EENT: No signs and/or symptoms were reported regarding the EENT system. Neuro: Level of Consciousness is awake, alert, obeys commands, Oriented to person, place, time, situation. Cardiovascular: Patient's skin is warm and dry. Respiratory: Airway is patent Respiratory effort is even, unlabored, Respiratory pattern is regular, symmetrical. GI: Abdomen is round non-distended, Reports upper abdominal pain, nausea. : No signs and/or symptoms were reported regarding the genitourinary system. Derm: No signs and/or symptoms reported regarding the dermatologic system. Musculoskeletal: No signs and/or symptoms reported regarding the musculoskeletal system. RADIAGRAPH OPERATOR: 22:30 Not al5 Historical: - Allergies: 19:32 No Known Allergies; tm6 - PMHx: 19:32 None; tm6 - PSHx: 19:32 section; tm6 - Immunization history:: Flu vaccine is not up to date. - Infectious Disease History:: Denies. - Social history:: Smoking status: Reported history of juuling and/or vaping. Patient uses alcohol, occasionally. Screenin:54 [facility] ED Fall Risk Assessment (Adult) History of falling in the last 3 months, dd2 including since admission No falls in past 3 months (0 pts) Confusion or Disorientation No (0 pts) Intoxicated or Sedated No (0 pts) Impaired Gait No (0 pts) Mobility Assist Device Used No (0 pt) Altered Elimination No (0 pt) Score/Fall Risk Level 0 - 2 = Low Risk Oriented to surroundings, Maintained a safe environment, Educated pt \T\ family on fall prevention, incl call for assistance when getting out of bed, Assessed \T\ reinforced patient's understanding of fall precautions, Hourly rounding (assess needs \T\ fall precautionary measures) done. Abuse screen: Denies threats or abuse. Nutritional screening: No deficits noted. Tuberculosis screening: No symptoms or risk factors identified. Assessment: 19:54 General: Appears uncomfortable, Behavior is calm, cooperative, appropriate for age. dd2 Pain: Complains of pain in epigastric area, umbilical area and posterior aspect of right lateral abdomen Pain currently is 7 out of 10 on a pain scale. Neuro: No deficits noted. Level of Consciousness is awake, alert, obeys commands, Oriented to person, place, time, situation, Appropriate for age. Cardiovascular: No deficits noted. Patient's skin is warm and dry. Respiratory: No deficits noted. Airway is patent Respiratory effort is even, unlabored, Respiratory pattern is regular, symmetrical. GI: Abdomen is round non-distended, Bowel sounds present X 4 quads. Abd is soft X 4 quads Abdomen is tender to palpation in epigastric area and umbilical area Reports lower abdominal pain, constipation, nausea. : No deficits noted. No signs and/or symptoms were reported regarding the genitourinary system. EENT: No deficits noted. No signs and/or symptoms were reported regarding the EENT system. Derm: No deficits noted. No signs and/or symptoms reported regarding the dermatologic system. Musculoskeletal: No deficits noted. No signs and/or symptoms reported regarding the musculoskeletal system. Circulation, motion, and sensation intact. Range of motion: intact in all extremities. 22:50 Reassessment: Patient appears in no apparent distress at this time. Patient and/or al5 family updated on plan of care and expected duration. Pain level reassessed. Patient is alert, oriented x 3, equal unlabored respirations, skin warm/dry/pink. Patient states feeling better. Vital Signs: 19:31 BP 148 / 105; Pulse 80; Resp 17; Temp 98.4(O); Pulse Ox 97% on R/A; MAP 119 mmHg; tm6 Weight 92.99 kg; Height 5 ft. 2 in. ; Pain 10/10; 20:41 BP 138 / 96; Pulse 78; Resp 16; Pulse Ox 99% on R/A; dd2 21:00 BP 108 / 73; Pulse 67; Resp 18; Pulse Ox 98% on R/A; al5 21:30 BP 122 / 81; Pulse 69; Resp 17; Pulse Ox 98% on R/A; al5 22:00 BP 107 / 77; Pulse 73; Resp 16; Pulse Ox 96% on R/A; al5 22:30 BP 105 / 72; Pulse 73; Resp 16; Pulse Ox 95% on R/A; al5 22:52 BP 111 / 72; Pulse 73; Resp 16; Pulse Ox 95% on R/A; al5 19:31 Body Mass Index 37.49 (92.99 kg, 157.48 cm) tm6 19:31 Pain Scale: Adult tm6 Sheldon Coma Score: 19:54 Eye Response: spontaneous(4). Motor Response: obeys commands(6). Verbal Response: dd2 oriented(5). Total: 15. ED Course: 19:12 Patient arrived in ED. ra3 19:13 Flaco Holder PA is PHCP. cp 19:13 Francisco Manrique MD is Attending Physician. cp 19:29 REJI DING, CHERI is Primary Nurse. dd2 19:32 Triage completed. tm6 19:32 Arm band placed on right wrist. tm6 19:54 Patient has correct armband on for positive identification. Bed in low position. Call dd2 light in reach. Side rails up X2. Client placed on continuous cardiac and pulse oximetry monitoring. NIBP monitoring applied. Door closed. Noise minimized. Warm blanket given. Pillow given. Verbal reassurance given. 19:59 Test, Serum Sent. dd2 20:01 CBC with Diff Sent. dd2 20: CMP Sent. dd2 20: Lipase Sent. dd2 20: Test, Urine Sent. dd2 20:01 Urinalysis w/ reflexes Sent. dd2 20:02 No provider procedures requiring assistance completed. Initial lab(s) drawn, by me, dd2 sent to lab. Urine collected: clean catch specimen, cloudy. Inserted saline lock: 20 gauge in right antecubital area, using aseptic technique. Blood collected. Flushed with 10 mL NS. Patient maintains SpO2 saturation greater than 95% on room air. 20:34 CT Abd/Pelvis - IV Contrast Only In Process Unspecified. EDMS 21:31 US Abdomen Limited In Process Unspecified. EDMS 22:04 XRAY Chest (1 view) In Process Unspecified. EDMS 22:17 Luis Crawford MD is Referral Physician. 22:30 Provided Education on: discharge follow up. al5 22:53 IV discontinued, intact, bleeding controlled, No redness/swelling at site. Pressure al5 dressing applied. Administered Medications: 20:01 Drug: Famotidine IVP 20 mg IVP once; dilute with 10 mL 0.9% NaCl; give over 2 minutes dd2 Route: IVP; Site: right antecubital; 22:56 Follow up: Response: No adverse reaction; Pain is decreased al5 20:01 Drug: Ondansetron IVP 4 mg IVP once; over 2 minutes Route: IVP; Site: right antecubital;dd2 22:56 Follow up: Response: No adverse reaction; Nausea is decreased al5 20:01 Drug: NS 0.9% IV 1000 ml IV at 1 bolus Per protocol; to be given as a bolus over 60 dd2 minutes Route: IV; Rate: 1 bolus; Site: right antecubital; 22:56 Follow up: Response: No adverse reaction; IV Status: Completed infusion; IV Intake: al5 1000ml 20:34 Drug: TORadol - Ketorolac IVP 15 mg IVP once; may give if test negative dd2 Route: IVP; Site: right antecubital; 22:56 Follow up: Response: No adverse reaction; Pain is decreased al5 22:48 Drug: GI Cocktail without - (Maalox PO 30 ml, Lidocaine Mucous Membrane 2 % 15 al5 ml) PO once Route: PO; 22:48 Follow up: Response: No adverse reaction; Medication administered at discharge. al5 Medication: 19:54 VIS not applicable for this client. dd2 Intake: 22:56 IV: 1000ml; Total: 1000ml. al5 Outcome: 22:18 Discharge ordered by . cp 22:53 Discharged to home ambulatory, with significant other, al5 22:53 Condition: good 22:53 Discharge instructions given to patient, significant other, Instructed on discharge instructions, follow up and referral plans. medication usage, Demonstrated understanding of instructions, follow-up care, medications, Prescriptions given X 2, 22:56 Patient left the ED. al5 Signatures: Dispatcher [employer] EDMS Flaco Holder PA PA cp Masterson, Tawney RN RN tm6 Blaire Dunlap ra3 Evonne Rousseau RN RN al5 REJI DING RN RN dd2
--- NOTE | 2024-04-03 22:18 | EDPHYS ---
Physician Documentation [facility] Name: Tracy Brewer Age: 39 yrs Sex: Female : 1985 Arrival Date: 04/03/2024 Time: 19:09 Bed 4 Private MD: ED Physician Francisco Manrique HPI: 04/03 19:33 This 39 yrs old Female presents to ER via Ambulatory with complaints of cp Stomach pain. 19:33 The patient presents with abdominal pain in the epigastric area, in the right upper cp quadrant. Onset: The symptoms/episode began/occurred today. The symptoms do not radiate. Associated signs and symptoms: Pertinent positives: nausea, Pertinent negatives: chest pain, constipation, fever, vomiting. The symptoms are described as constant. 19:33 The patient has been recently seen at an urgent care, today, for similar complaints, cp and was sent to the [facility] Emergency Department for further evaluation. EDITOR NEWS: 22:30 Not al5 Historical: - Allergies: 19:32 No Known Allergies; tm6 - PMHx: 19:32 None; tm6 - PSHx: 19:32 section; tm6 - Immunization history:: Flu vaccine is not up to date. - Infectious Disease History:: Denies. - Social history:: Smoking status: Reported history of juuling and/or vaping. Patient uses alcohol, occasionally. ROS: 19:35 Abdomen/GI: Positive for abdominal pain, nausea, of the epigastric area and right cp flank, Negative for diarrhea, constipation, 19:35 Constitutional: Negative for body aches, chills, fever, cp 19:35 Eyes: Negative for injury, pain, redness, and discharge, cp 19:35 ENT: Negative for drainage from ear(s), ear pain, sore throat, difficulty swallowing, cp difficulty handling secretions, 19:35 Cardiovascular: Negative for chest pain, edema, palpitations, 19:35 Respiratory: Negative for cough, shortness of breath, wheezing, 19:35 Back: Negative for pain at rest, pain with movement, 19:35 Neuro: Negative for altered mental status, headache, weakness, 19:35 All other systems are negative, cp Exam: 19:40 Constitutional: The patient appears in no acute distress, alert, awake, cp non-diaphoretic, non-toxic, well developed, well nourished, uncomfortable, overweight 19:40 Head/Face: Normocephalic, atraumatic. cp 19:40 Eyes: Periorbital structures: appear normal, Conjunctiva: normal, no exudate, no injection, Sclera: no appreciated abnormality, Lids and lashes: appear normal, bilaterally, 19:40 ENT: External ear(s): are unremarkable, Nose: is normal, Mouth: Lips: moist, Oral mucosa: moist, Posterior pharynx: Airway: no evidence of obstruction, patent, 19:40 Chest/axilla: Inspection: normal, 19:40 Cardiovascular: Rate: normal, Rhythm: regular, 19:40 Respiratory: the patient does not display signs of respiratory distress, Respirations: normal, no use of accessory muscles, no retractions, labored breathing, is not present, Breath sounds: are clear throughout, no decreased breath sounds, no stridor, no wheezing, 19:40 Abdomen/GI: Inspection: abdomen appears normal, Bowel sounds: active, all quadrants, Palpation: soft, in all quadrants, moderate abdominal tenderness, in the epigastric area and right lateral abdomen, rebound tenderness, is not appreciated, voluntary guarding, is elicited in the epigastric area, 19:40 Back: pain, is absent, ROM is normal, 19:40 Neuro: Orientation: to person, place \T\ time. Mentation: is normal, Motor: moves all fours, strength is normal, Vital Signs: 19:31 BP 148 / 105; Pulse 80; Resp 17; Temp 98.4(O); Pulse Ox 97% on R/A; MAP 119 mmHg; tm6 Weight 92.99 kg; Height 5 ft. 2 in. ; Pain 10/10; 20:41 BP 138 / 96; Pulse 78; Resp 16; Pulse Ox 99% on R/A; dd2 21:00 BP 108 / 73; Pulse 67; Resp 18; Pulse Ox 98% on R/A; al5 21:30 BP 122 / 81; Pulse 69; Resp 17; Pulse Ox 98% on R/A; al5 22:00 BP 107 / 77; Pulse 73; Resp 16; Pulse Ox 96% on R/A; al5 22:30 BP 105 / 72; Pulse 73; Resp 16; Pulse Ox 95% on R/A; al5 22:52 BP 111 / 72; Pulse 73; Resp 16; Pulse Ox 95% on R/A; al5 19:31 Body Mass Index 37.49 (92.99 kg, 157.48 cm) tm6 19:31 Pain Scale: Adult tm6 Buckner Coma Score: 19:54 Eye Response: spontaneous(4). Motor Response: obeys commands(6). Verbal Response: dd2 oriented(5). Total: 15. MDM: 19:16 Medical Screening Exam initiated 20:00 Differential diagnosis: cholecystitis, Cholelithiasis, non-specific abd pain, cp pancreatitis, Peptic Ulcer Disease, Perf. Duodenal Ulcer, Perf. Gastric Ulcer, Pyelonephritis, Ureterolithiasis, urinary tract infection. 22:18 Data reviewed: vital signs, nurses notes, lab test result(s), radiologic studies, CT cp scan, plain films, ultrasound, and as a result, I will discharge patient. 22:18 I considered the following discharge prescriptions or medication management in the emergency department Medications were administered in the Emergency Department. See MAR. Counseling: I had a detailed discussion with the patient and/or guardian regarding the historical points, exam findings, and any diagnostic results supporting the discharge/admit diagnosis, lab results, radiology results, the need for outpatient follow up, a general surgeon, to return to the emergency department if symptoms worsen or persist or if there are any questions or concerns that arise at home. Special discussion: Based on the patient's Hx, exam, and Dx evaluation, there is no indication for emergent surgery or inpatient Tx. It is understood by the patient/guardian that if the Sx's persist or worsen they need to return immediately for re-evaluation. ED course: VSS. Pain and nausea improved. Discussed results of today's test and need for f/u with general surgery. 04/03 19:28 Order name: CBC with Diff; Complete Time: 21:02 cp 04/03 21: Interpretation: Normal except: MPV 6.8. 04/03 19:28 Order name: CMP; Complete Time: 21:02 cp 04/03 21:02 Interpretation: Normal except: GLUC 162; AST 13; GLOB 4.6; A/G 0.8. 04/03 19:28 Order name: Lipase; Complete Time: 21:02 04/03 22:21 Interpretation: Reviewed. 04/03 19:28 Order name: Test, Urine; Complete Time: 21:02 04/03 21:03 Interpretation: Reviewed. 04/03 19:28 Order name: Urinalysis w/ reflexes; Complete Time: 21:02 04/03 21:02 Interpretation: Normal except: [facility] Turbid; UGLUC TRACE; UBLD Trace. 04/03 19:28 Order name: CT Abd/Pelvis - IV Contrast Only; Complete Time: 21:02 04/03 21:05 Order name: US Abdomen Limited; Complete Time: 22:08 04/03 21:05 Order name: XRAY Chest (1 view); Complete Time: 22:20 04/03 22:21 Interpretation: Report review. 04/03 19:28 Order name: IV Saline Lock; Complete Time: 19:59 04/03 19:28 Order name: Labs collected and sent; Complete Time: 19:59 04/03 21:05 Order name: NPO; Complete Time: 21:58 cp Administered Medications: 20:01 Drug: Famotidine IVP 20 mg IVP once; dilute with 10 mL 0.9% NaCl; give over 2 minutes dd2 Route: IVP; Site: right antecubital; 22:56 Follow up: Response: No adverse reaction; Pain is decreased al5 20:01 Drug: Ondansetron IVP 4 mg IVP once; over 2 minutes Route: IVP; Site: right antecubital;dd2 22:56 Follow up: Response: No adverse reaction; Nausea is decreased al5 20:01 Drug: NS 0.9% IV 1000 ml IV at 1 bolus Per protocol; to be given as a bolus over 60 dd2 minutes Route: IV; Rate: 1 bolus; Site: right antecubital; 22:56 Follow up: Response: No adverse reaction; IV Status: Completed infusion; IV Intake: al5 1000ml 20:34 Drug: TORadol - Ketorolac IVP 15 mg IVP once; may give if test negative dd2 Route: IVP; Site: right antecubital; 22:56 Follow up: Response: No adverse reaction; Pain is decreased al5 22:48 Drug: GI Cocktail without - (Maalox PO 30 ml, Lidocaine Mucous Membrane 2 % 15 al5 ml) PO once Route: PO; 22:48 Follow up: Response: No adverse reaction; Medication administered at discharge. al5 Disposition Summary: 04/03/24 22:18 Discharge Ordered Notes: Location: Home cp Problem: new cp Symptoms: have improved cp Condition: Stable cp Diagnosis - Other cholelithiasis without obstruction cp - Nausea with vomiting, unspecified cp Followup: cp - With: Luis Crawford MD - When: 2 - 3 days - Reason: Recheck today's complaints Discharge Instructions: - Discharge Summary Sheet cp - Nausea and Vomiting, Adult cp - Cholelithiasis cp Forms: - Medication Reconciliation Form cp - Antibiotic Education cp - Prescription Opioid Use cp - Patient Portal Instructions cp - Leadership Thank You Letter cp Prescriptions: - dicyclomine 20 mg Oral tablet - take 1 tablet ORAL route 4 times per day; 30 tablet; Refills: 0, Product cp Selection Permitted - ondansetron 8 mg Oral Tablet,disintegrating - take 1 tablet ORAL route every 12 hours; 20 tablet; Refills: 0, Product cp Selection Permitted Signatures: Dispatcher [employer] EDMS Flaco Holder PA PA cp Masterson, Tawney RN RN tm6 Evonne Rousseau RN RN al5 REJI DING RN RN dd2
[2024-04-03] MEDS ORDERED: MAGNES/ALUMIN/SIMET 30ML UCUP ONE (22:33)
[2024-04-03] MEDS ORDERED: LIDOCAINE VISCOUS 2% 10ML ORAL SOLN ONE (22:34)
[2024-04-03 23:06] VITALS: TEMP 98.4
[2024-04-03 23:26] VITALS: O2SAT 95
[2024-04-03 23:27] VITALS: BP 111/72
== END 2024-04-03 22:56 | disposition home or self-care (01) ==
LOC: ER 19:09
DX: K80.80 Other cholelithiasis without obstruction (principal); R11.2 Nausea with vomiting, unspecified; F17.290 Nicotine dependence, other tobacco product, uncomplicated
CPT/HCPCS: 36415; 71045; 74177; 76705; 80053; 81001; 81025; 83690; 85025; 96361; 96374; 96375; 99284; J2405; J7030; Q9967